=== PATIENT | male | born 1990 | race Caucasian/White ===

== ENCOUNTER 2019-02-16 20:25 | Emergency (ER) | payer OTHER ==
[~2019-02-16] VITALS: Ht 177.8 cm; Wt 81.7 kg
== END 2019-02-16 21:27 | disposition home or self-care (01) ==
LOC: ER 20:25
DX: L23.7 Allergic contact dermatitis due to plants, except food (principal); L03.116 Cellulitis of left lower limb
CPT/HCPCS: 96372; 99283-25; J0696; J1100; Q0163

== ENCOUNTER 2019-02-17 12:15 | Emergency (ER) | payer OTHER ==
[~2019-02-17] VITALS: Ht 177.8 cm; Wt 83.0 kg
== END 2019-02-17 13:20 | disposition home or self-care (01) ==
LOC: ER 12:15
DX: L23.7 Allergic contact dermatitis due to plants, except food (principal); L03.116 Cellulitis of left lower limb; F17.200 Nicotine dependence, unspecified, uncomplicated
CPT/HCPCS: 96372; 99281-25; J0696; Q0163

== ENCOUNTER 2019-02-18 12:08 | Emergency (ER) | payer OTHER ==
[~2019-02-18] VITALS: Ht 177.8 cm; Wt 83.0 kg
== END 2019-02-18 13:41 | disposition home or self-care (01) ==
LOC: ER 12:08
DX: L03.116 Cellulitis of left lower limb (principal); N48.22 Cellulitis of corpus cavernosum and penis; L23.7 Allergic contact dermatitis due to plants, except food; R03.0 Elevated blood-pressure reading, without diagnosis of hypertension; F17.200 Nicotine dependence, unspecified, uncomplicated
CPT/HCPCS: 96372; 99281-25; J0696; J3301; Q0163

== ENCOUNTER 2019-02-20 07:27 | Day surgery (SDC) | payer OTHER ==
[2019-02-20] MEDS ORDERED: Ceftriaxone1 G2 IM (15:18)
== END 2019-02-20 15:10 | disposition home or self-care (01) ==
LOC: ATC 07:27
DX: L03.116 Cellulitis of left lower limb (principal); L23.7 Allergic contact dermatitis due to plants, except food
CPT/HCPCS: 96372; J0696

== ENCOUNTER 2019-02-21 00:20 | Day surgery (SDC) | payer OTHER ==
[~2019-02-21 00:20] MED LIST: Ceftriaxone1 G2 IM
== END 2019-02-21 22:50 | disposition home or self-care (01) ==
LOC: ATC 00:20
DX: L03.90 Cellulitis, unspecified (principal); L23.7 Allergic contact dermatitis due to plants, except food
CPT/HCPCS: 96372; J0696